=== PATIENT | male | born 1990 | race Caucasian/White ===

== ENCOUNTER → 2017-04-04 09:16 | Emergency (ER) | payer MEDICAID ==
[~2017-04-04 09:16] MED LIST: Naproxen TAB* 250 MG PO ONE
[2017-04-04 09:23] VITALS: BP 174/98
--- NOTE | 2017-04-04 10:27 | RAD ---
Indication: Right knee pain. 4 views of the right knee demonstrates no fracture. Joint spaces all well-preserved. No joint effusion is noted. IMPRESSION: Unremarkable right knee.
--- NOTE | 2017-04-04 12:29 | ED ---
Lower Extremity - HPI Summary HPI Summary: 26 male presents with complaints of right knee pain that began 2 weeks ago and has increasingly worsening over the past couple of days. Patient denies any known trauma or injury. He was lifting tires a few weeks ago and had one fall however he thought it hit is left knee rather than his right, but he is unsure. States bearing weight, walking and any movement causes pain, "it feels like it is going to give out". Patient denies any bruising, swelling, numbness/tingling , redness or other injuries/pain. Able to bear weight however causes pain. No PMHx. Has been taking naproxen and ibuprofen with little relief. 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 Unsure if that causes his pain. - History of Current Complaint Chief Complaint: EDExtremityLower Stated Complaint: RT KNEE PAIN Time Seen by Provider: 04/04/17 10:56 Hx Obtained From: Patient Mechanism Of Injury: Unknown Onset of Pain: Days Onset/Duration: Worse Since Severity Initially: Mild Severity Currently: Moderate Pain Intensity: 6 Pain Scale Used: 0-10 Numeric Timing: Constant Location: Is Discrete @ - right knee, diffuse Character Of Pain: Dull, Aching Associated Signs And Symptoms: Positive: Knee Pain - right Aggravating Factor(s): Standing, Ambulation, Movement, Weight Bearing Alleviating Factor(s): Rest - position Able to Bear Weight: Yes - Allergies/Home Medications Allergies/Adverse Reactions: Allergies Allergy/AdvReac Type Severity Reaction Status Date / Time Penicillins Allergy Intermediate Hives Verified 04/04/17 09:21 Hydrocodone AdvReac Intermediate GI Upset Verified 04/04/17 09:21 PMH/Surg Hx/FS Hx/Imm Hx Endocrine/Hematology History: Denies: Hx Anticoagulant Therapy, Hx Bone Marrow Disease, Hx Diabetes, Hx Sickle Cell Disease, Hx Thyroid Disease, Hx Anemia Cardiovascular History: Denies: Hx Hypertension, Hx Pacemaker/ICD Respiratory History: Denies: Hx Asthma, Hx Chronic Obstructive Pulmonary Disease (COPD), Hx Sleep Apnea GI History: Reports: Hx Gastroesophageal Reflux Disease - TWICE PER WEEK Denies: Hx Cirrhosis, Hx Crohn's Disease, Hx Irritable Bowel, Other GI Disorders History: Denies: Hx Kidney Infection, Hx Kidney Stones, Hx Renal Disease Musculoskeletal History: Reports: Hx Tendonitis - LEFT HAND- SEVERAL YEARS AGO- OK NOW Denies: Hx Arthritis, Hx Bursitis, Other Musculoskeletal History Sensory History: Denies: Hx Contacts or Glasses, Hx Hearing Aid Opthamlomology History: Denies: Hx Contacts or Glasses Neurological History: Denies: Hx Dementia, Hx Headaches, Hx Migraine, Hx Nerve Disease, Hx Seizures Psychiatric History: Denies: Hx Anxiety, Hx Depression, Hx Substance Abuse - Surgical History Surgery Procedure, Year, and Place: [facility] 2010. BROKE RIGHT WRIST- JUST CASTED. BROKE LEFT ANKLE- CAST ONLY. LEFT INDEX FINGER LACERATION- STITCHES Hx Anesthesia Reactions: No - Immunization History Immunizations Up to Date: Yes Infectious Disease History: Denies: Hx Clostridium Difficile, Hx Hepatitis, Hx Human Immunodeficiency Virus (HIV), Hx Shingles, Hx Tuberculosis, Traveled Outside the [place] in Last 30 Days - Family History Known Family History: Positive: None - Social History Alcohol Use: Rare Alcohol Amount: 4 BEERS BIWEEKLY Substance Use Type: Reports: Marijuana Substance Use Comment - Amount & Last Used: "EVERY ONCE IN AWHILE" Smoking Status (MU): Heavy Every Day Tobacco Smoker Amount Used/How Often: 12-15 CIGS PER DAY, 8 YEARS Review of Systems Constitutional: Negative Cardiovascular: Negative Respiratory: Negative Positive: Arthralgia, Myalgia, Decreased ROM - right knee Skin: Negative Neurological: Negative All Other Systems Reviewed And Are Negative: Yes Physical Exam Triage Information Reviewed: Yes Vital Signs On Initial Exam: Initial Vitals Temp Pulse Resp BP Pulse Ox 98 F 110 16 174/98 99 04/04/17 09:21 04/04/17 09:21 04/04/17 09:21 04/04/17 09:21 04/04/17 09:21 Vital Signs Reviewed: Yes Appearance: Positive: Well-Appearing, No Pain Distress, Well-Nourished Skin: Positive: Warm, Skin Color Reflects Adequate Perfusion, Dry, Other - no ecchymosis or edema noted. Negative: Cold, Numb, Soft, Pale, Erythema @ Head/Face: Positive: Normal Head/Face Inspection Eyes: Positive: Conjunctiva Clear ENT: Positive: Hearing grossly normal Neck: Positive: Supple, Nontender Respiratory/Lung Sounds: Positive: Clear to Auscultation, Breath Sounds Present. Negative: Rales, Rhonchi, Wheezes Cardiovascular: Positive: Normal, RRR, Pulses are Symmetrical in both Upper and Lower Extremities. Negative: Murmur, Rub Musculoskeletal: Positive: Limited @ - right knee limited ROM due to pain, better with passive but still causes pain, Pain @ - palaption of lateral sides of right knee, diffuse pain, Other - rest of MSK exam normal. no crepitus, obvious deformity, step off or ecchymosis/edema noted.. Negative: Interruption @, Vivian Sign Left, Vivian Sign Right, Edema Left, Edema Right Neurological: Positive: Normal, Sensory/Motor Intact - sensation intact, Alert, Oriented to Person Place, Time, CN Intact II-III, NV Bundle Intact Distally, Abnormal Gait - favoring left side, limping due to right knee pain Diagnostics - Vital Signs Vital Signs Temp Pulse Resp BP Pulse Ox 04/04/17 09:21 98 F 110 16 174/98 99 - Laboratory Lab Statement: Any lab studies that have been ordered have been reviewed, and results considered in the medical decision making process. - Radiology right knee Xray Interpretation: No Acute Changes - Unremarkable right knee. Radiology Interpretation Completed By: Radiologist Lower Extremity Course/Dx - Course Course Of Treatment: x-ray of right knee obtained and unremarkable. no concern for any other emergent etiology at this time due to PE and HPI, no further work up necessary at this time. In need of possible further evaluation and imaging. Possible meniscal or ligamentous injury due to overuse. Continue naproxen. RICE. Aware of worsening signs and symptoms. Follow up with ortho and pcp. - Diagnoses Differential Diagnosis/HQI/PQRI: Positive: Arthritis, Contusion, Dislocation, Fracture (Closed), Sprain, Strain, Tendonitis Provider Diagnoses: Right knee pain Discharge - Discharge Plan Condition: Stable Disposition: HOME Patient Education Materials: Knee Pain (ED) Referrals: No Primary Care Phys,NOPCP [Primary Care Provider] - Huy Duran MD [Medical Doctor] - Additional Instructions: Please make an appointment with orthopedics for further imaging and evaluation if symptoms persist. Continue taking naproxen as directed with food for pain and inflammation. Rest, ice, elevate and use knee immobilizer. Return if new symptoms develop or symptoms worsen.
== END | disposition home or self-care (01) ==
LOC: ED 09:16
DX: M25.561 Pain in right knee (principal)
CPT/HCPCS: 99282; A9270-GY

== ENCOUNTER 2019-03-11 22:27 | Emergency (ER) | payer BC ==
--- NOTE | 2019-03-12 01:18 | ED ---
Upper Extremity Pain - HPI Summary HPI Summary: This patient is a 28 year old M presenting to ED with a chief complaint of right hand pain after punching a wall at 1830 today. Patient has lacerations on the knuckles. Patient states his last tetanus was a little over a year ago. Patient has previously had surgery on his right 4th finger. The patient rates the pain 5/10 in severity. Symptoms aggravated by nothing. Symptoms alleviated by nothing. Patient denies fever. - History of Current Complaint Chief Complaint: EDExtremityUpper Stated Complaint: PUNCHED A WALL, RIGHT HAND INJURY PER PT Time Seen by Provider: 03/12/19 01:04 Hx Obtained From: Patient Mechanism Of Injury: Blunt Trauma - Punched wall Onset/Duration: Started Hours Ago - 1829 today, Still Present Timing: Constant Severity Initially: Moderate Severity Currently: Moderate Pain Location: Hand - Right Aggravating Factor(s): Nothing Alleviating Factor(s): Nothing Associated Signs & Symptoms: Negative: Fever - Allergies/Home Medications Allergies/Adverse Reactions: Allergies Allergy/AdvReac Type Severity Reaction Status Date / Time MS Penicillins [Penicillins] Allergy Intermediate Hives Verified 03/11/19 22:32 MS Hydrocodone [Hydrocodone] AdvReac Intermediate GI Upset Verified 03/11/19 22: 32 Home Medications: Home Medications Buprenorphine HCl/Naloxone HCl [Buprenor-Nalox 12-3 mg Sl Film] 1 each SL DAILY 03/12/19 [History Confirmed 03/12/19] PMH/Surg Hx/FS Hx/Imm Hx Endocrine/Hematology History: Denies: Hx Anticoagulant Therapy, Hx Bone Marrow Disease, Hx Diabetes, Hx Sickle Cell Disease, Hx Thyroid Disease, Hx Anemia Cardiovascular History: Denies: Hx Hypertension, Hx Pacemaker/ICD Respiratory History: Denies: Hx Asthma, Hx Chronic Obstructive Pulmonary Disease (COPD), Hx Sleep Apnea GI History: Reports: Hx Gastroesophageal Reflux Disease - TWICE PER WEEK Denies: Hx Cirrhosis, Hx Crohn's Disease, Hx Irritable Bowel, Other GI Disorders History: Denies: Hx Kidney Infection, Hx Kidney Stones, Hx Renal Disease Musculoskeletal History: Reports: Hx Tendonitis - LEFT HAND- SEVERAL YEARS AGO- OK NOW Denies: Hx Arthritis, Hx Bursitis, Other Musculoskeletal History Sensory History: Denies: Hx Contacts or Glasses, Hx Hearing Aid Opthamlomology History: Denies: Hx Contacts or Glasses Neurological History: Denies: Hx Dementia, Hx Headaches, Hx Migraine, Hx Nerve Disease, Hx Seizures Psychiatric History: Denies: Hx Anxiety, Hx Depression, Hx Substance Abuse - Surgical History Surgery Procedure, Year, and Place: [facility] [place] [facility] 2010. BROKE RIGHT WRIST- JUST CASTED. BROKE LEFT ANKLE- CAST ONLY. LEFT INDEX FINGER LACERATION- STITCHES Hx Anesthesia Reactions: No Infectious Disease History: No Infectious Disease History: Denies: Hx Clostridium Difficile, Hx Hepatitis, Hx Human Immunodeficiency Virus (HIV), Hx Shingles, Hx Tuberculosis, Traveled Outside the [place] in Last 30 Days - Family History Known Family History: Positive: Non-Contributory - Social History Alcohol Use: Rare Alcohol Amount: 4 BEERS BIWEEKLY Hx Substance Use: Yes Substance Use Type: Reports: Marijuana Substance Use Comment - Amount & Last Used: "EVERY ONCE IN AWHILE" Hx Tobacco Use: Yes Smoking Status (MU): Heavy Every Day Tobacco Smoker Amount Used/How Often: 12-15 CIGS PER DAY, 8 YEARS Review of Systems Negative: Fever Skin: Other - Laceration to right hand All Other Systems Reviewed And Are Negative: Yes Physical Exam - Summary Physical Exam Summary: VITAL SIGNS: Reviewed. GENERAL: Patient is a well-developed and nourished male who is lying comfortable in the stretcher. Patient is not in any acute respiratory distress. HEAD AND FACE: No signs of trauma. No ecchymosis, hematomas or skull depressions. No sinus tenderness. EYES: PERRLA, EOMI x 2, No injected conjunctiva, no nystagmus. EARS: Hearing grossly intact. Ear canals and tympanic membranes are within normal limits. MOUTH: Oropharynx within normal limits. NECK: Supple, trachea is midline, no adenopathy, no JVD, no carotid bruit, no c- spine tenderness, neck with full ROM CHEST: Symmetric, no tenderness at palpation LUNGS: Clear to auscultation bilaterally. No wheezing or crackles. CVS: Regular rate and rhythm, S1 and S2 present, no murmurs or gallops appreciated. ABDOMEN: Soft, non-tender. No signs of distention. No rebound no guarding, and no masses palpated. Bowel sounds are normal. EXTREMITIES: FROM in all major joints, no edema, no cyanosis or clubbing. NEURO: Alert and oriented x 3. No acute neurological deficits. Speech is normal and follows commands. SKIN: triangle-shaped laceration with free flap measuring [id number] over the right fourth MCP joint. Triage Information Reviewed: Yes Vital Signs On Initial Exam: Initial Vitals Temp Pulse Resp BP Pulse Ox 98.3 F 84 16 135/78 96 03/11/19 22:30 03/11/19 22:30 03/11/19 22:30 03/11/19 22:30 03/11/19 22:30 Vital Signs Reviewed: Yes Procedures - Laceration/Wound Repair 1 Location: upper extremity - R hand Description: Joint Proximity Anesthesia: 2.0%, [place] Length, Depth and Shape: [place] shape with flap, [id number] Betadine Prep?: No Laceration/Wound Explored: clean Closure: Single Layer Suture Type: Nylon Number of Sutures: 6 Diagnostics - Vital Signs Vital Signs Temp Pulse Resp BP Pulse Ox 03/11/19 22:30 98.3 F 84 16 135/78 96 - Laboratory Lab Statement: Any lab studies that have been ordered have been reviewed, and results considered in the medical decision making process. - Radiology Right hand XR Radiology Interpretation Completed By: ED Physician Summary of Radiographic Findings: No fracture, pending official radiology report. Course/Dx - Course Course Of Treatment: This patient is a 28 year old M presenting to ED with a chief complaint of right hand pain after punching a wall at 1830 today. Right hand XR revealed no fracture, pending official radiology report. I sutured the laceration closed using 6 Nylon stitches without complication. Patient will be discharged home with dx of hand laceration. Patient understands and agrees with this plan. - Diagnoses Provider Diagnoses: Hand laceration Discharge - Sign-Out/Discharge Documenting (check all that apply): Patient Departure - discharge Patient Received Moderate/Deep Sedation with Procedure: No - Discharge Plan Condition: Stable Disposition: HOME Patient Education Materials: Care For Your Stitches (ED), Finger Laceration (ED ) Referrals: Lebron Mancia MD [Primary Care Provider] - 03/22/19 Additional Instructions: Follow-up with your primary care provider in 10 days to remove the stitches. RETURN TO THE ER FOR WORSENING OR CHANGING SYMPTOMS. - Billing Disposition and Condition Condition: STABLE Disposition: Home - Attestation Statements Document Initiated by Scribe: Yes Documenting Scribe: Avni Timmons Provider For Whom Conyiblupe is Documenting (Include Credential): Jarde Llanes MD Scribe Attestation: I, Avni Timmons, scribed for Jared Llanes MD on 03/12/19 at 1940. Scribe Documentation Reviewed: Yes Provider Attestation: The documentation as recorded by the scribe, Avni Timmons accurately reflects the service I personally performed and the decisions made by me, Jared Llanes MD Status of Scribe Document: Viewed
[2019-03-12 02:31] VITALS: BP 119/78
== END 2019-03-12 02:30 | disposition home or self-care (01) ==
LOC: ED 22:27
DX: S61.411A Laceration without foreign body of right hand, initial encounter (principal); W22.09XA Striking against other stationary object, initial encounter; Y92.89 Other specified places as the place of occurrence of the external cause; Z88.0 Allergy status to penicillin; Z88.5 Allergy status to narcotic agent; F17.210 Nicotine dependence, cigarettes, uncomplicated
CPT/HCPCS: 12001; 99282